=== PATIENT | male | born 1995 | race African-American/Black ===

== ENCOUNTER 2024-10-23 13:18 | Inpatient (IN) | payer OTHER ==
[~2024-10-23] VITALS: Ht 182.9 cm; Wt 73.0 kg
[2024-10-23 15:50] VITALS: BP 120/57; PULSE 60; RESP 18; TEMP 98.7; O2SAT 100
[2024-10-23] MEDS ORDERED: ONDANSETRON 4 MG RAPDIS TABLET PO PRN (16:30)
[2024-10-23] MEDS ORDERED: POLYETHYLENE GLYCOL 3350 17 GM PACKET PO PRN (16:30)
[2024-10-23] MEDS ORDERED: OxyCODONE HCL 10 MG IR TABLET PO PRN (16:30)
[2024-10-23] MEDS: ACETAMINOPHEN 325 MG TABLET PO SCH (18:35)
[2024-10-23] MEDS: IBUPROFEN 600 MG TABLET PO SCH (18:36)
[2024-10-23 19:39] VITALS: BP 128/66; PULSE 86; RESP 18; TEMP 97.8; O2SAT 100
[2024-10-23 19:42] VITALS: O2SAT 100
[2024-10-23] MEDS: SENNOSIDES 8.6 MG TABLET PO SCH (21:12)
[2024-10-23] MEDS: DOCUSATE SODIUM 250 MG CAPSULE PO SCH (21:12)
[2024-10-23] MEDS: ETHYL ALCOHOL 62% ANTISEPTIC NASAL SANITIZER 0.6 ML AMPUL NASAL SCH (21:12)
[2024-10-23] MEDS: ENOXAPARIN SODIUM 40 MG/0.4 ML PF SYRINGE SQ SCH (21:13)
[2024-10-23] MEDS: TraZODone HCL 50 MG TABLET PO PRN (21:15)
[2024-10-23] MEDS: BACITRACIN 28 GM OINTMENT TP SCH (22:50)
[2024-10-23 23:25] VITALS: O2SAT 100
[2024-10-24 07:55] VITALS: BP 120/72; PULSE 61; RESP 18; TEMP 98; O2SAT 100
[2024-10-24 07:58] LABS: BASOPHILS % (AUTO) 0.4 % (0.0-2.0); EOSINOPHILS % (AUTO) 3.4 % (1.0-6.0); HEMATOCRIT 31.1 % (41-53); HEMOGLOBIN 10.5 g/dL (13.5-17.5); LYMPHOCYTES # (AUTO) 1.1 K/uL (1.0-4.8); LYMPHOCYTES % (AUTO) 15.8 % (22.0-44.0); MEAN CORPUSCULAR HEMOGLOBIN 30.6 pg (26.0-34.0); MEAN CORPUSCULAR HGB CONC 33.8 G/dL (31.0-37.0); MEAN CORPUSCULAR VOLUME 91 fL (80-100); MONOCYTES # (AUTO) 0.8 K/uL (0.1-1.0); MONOCYTES % (AUTO) 11.9 % (2.0-9.0); NEUTROPHILS # (AUTO) 4.9 K/uL (1.8-7.7); NEUTROPHILS % (AUTO) 68.5 % (40.0-70.0); PLATELET COUNT (AUTO) 225 K/uL (150-450); RED BLOOD CELL COUNT(AUTO) 3.43 MIL/uL (4.50-5.90); WHITE BLOOD COUNT (AUTO) 7.1 K/uL (4.5-11.0)
[2024-10-24 08:00] VITALS: O2SAT 100
[2024-10-24 08:14] LABS: ALANINE AMINOTRANSFERASE 125 U/L (12-78); ALBUMIN 2.9 g/dL (3.4-5.0); ALKALINE PHOSPHATASE 34 U/L (46-116); ANION GAP 4 mmol/L (8-16); ASPARTATE AMINOTRANSFERASE 148 U/L (15-37); BILIRUBIN,TOTAL 1.4 mg/dL (0.1-1.0); CALCIUM, TOTAL 8.4 mg/dL (8.8-10.5); CARBON DIOXIDE 30 mmol/L (22-29); CHLORIDE 104 mmol/L (98-107); CREATININE 0.95 mg/dL (0.60-1.30); GLOMERULAR FILTR. RATE CALC > 60 mL/min (>60); GLUCOSE,RANDOM 84 mg/dL (70-110); POTASSIUM 4.1 mmol/L (3.5-5.1); SODIUM SERUM 138 mmol/L (136-145); TOTAL PROTEIN, SERUM 6.3 g/dL (6.4-8.2); UREA NITROGEN, BLOOD 15 mg/dL (7-18)
[2024-10-24] MEDS: LIDOCAINE 5% TRANSDERMAL PATCH TD SCH (08:31)
[2024-10-24 16:25] VITALS: PULSE 83; RESP 16; O2SAT 100
[2024-10-24] MEDS: LACTULOSE 20 GM/30 ML SOLUTION UDCUP PO PRN (17:31)
[2024-10-24] MEDS: BISACODYL 10 MG RECTAL RECTAL SUPPOSITORY PR PRN (19:54)
[2024-10-24] MEDS: -LIDODERM PATCH NOTE- MISC SCH (19:54)
[2024-10-24 20:00] VITALS: BP 117/76; PULSE 88; RESP 18; TEMP 98.6; O2SAT 96
[2024-10-25 03:34] VITALS: O2SAT 96
[2024-10-25 08:02] VITALS: BP 108/70; PULSE 75; RESP 18; TEMP 99; O2SAT 99
[2024-10-25] MEDS: ENOXAPARIN SODIUM 40 MG/0.4 ML PF SYRINGE SQ SCH (08:09)
[2024-10-25 10:10] VITALS: TEMP 98.8
[2024-10-25 20:00] VITALS: BP 116/67; PULSE 73; RESP 18; TEMP 98.6; O2SAT 100
[2024-10-26 08:00] VITALS: BP 115/78; PULSE 70; RESP 19; TEMP 98.1; O2SAT 100
[2024-10-26] MEDS: OxyCODONE HCL 5 MG IR TABLET PO PRN (09:00)
[2024-10-26 20:01] VITALS: BP 117/62; PULSE 76; RESP 19; TEMP 98.2; O2SAT 100
[2024-10-27 01:59] VITALS: O2SAT 100
[2024-10-27 08:00] VITALS: BP 96/56; PULSE 67; RESP 19; TEMP 98.2; O2SAT 100
[2024-10-27 20:05] VITALS: BP 119/65; PULSE 82; RESP 18; TEMP 98.6; O2SAT 97
[2024-10-27 22:00] VITALS: O2SAT 97
[2024-10-28 08:00] VITALS: BP 107/72; PULSE 70; RESP 20; TEMP 98.1; O2SAT 100
[2024-10-28] MEDS: FAMOTIDINE 20 MG TABLET PO SCH (12:37)
[2024-10-28] MEDS ORDERED: ASPI-1450 PO (13:25)
[2024-10-28] MEDS ORDERED: FAMO20 PO (13:25)
[2024-10-28 20:00] VITALS: BP 109/62; PULSE 69; RESP 18; TEMP 98.3; O2SAT 99
[2024-10-28] MEDS: ASPIRIN 81 MG CHEWABLE TABLET PO SCH (20:56)
[2024-10-29] MEDS ORDERED: DOCU-412 PO (03:30)
[2024-10-29] MEDS ORDERED: SENN-376 PO (03:30)
[2024-10-29 08:00] VITALS: BP 105/62; PULSE 71; RESP 20; TEMP 98.1; O2SAT 99
[2024-10-29] MEDS ORDERED: ASPI-1450 PO (10:06)
[2024-10-29] MEDS ORDERED: FAMO20 PO (10:06)
== END 2024-10-29 12:15 | disposition home or self-care (01) | DRG 964 ==
LOC: 2WR 15:59
PROVIDERS: ADMIT Physical Medicine & Rehabilitation; ATTEND Physical Medicine & Rehabilitation
DX: S06.9X9A Unspecified intracranial injury with loss of consciousness of unspecified duration, initial encounter (principal); E46 Unspecified protein-calorie malnutrition; S27.322A Contusion of lung, bilateral, initial encounter; S32.89XA Fracture of other parts of pelvis, initial encounter for closed fracture; D64.9 Anemia, unspecified; K59.00 Constipation, unspecified; Z74.09 Other reduced mobility; G47.00 Insomnia, unspecified; R40.2420 Glasgow coma scale score 9-12, unspecified time; R63.39 Other feeding difficulties; R74.01 Elevation of levels of liver transaminase levels; R26.81 Unsteadiness on feet; M54.9 Dorsalgia, unspecified; R74.8 Abnormal levels of other serum enzymes; S31.31XD Laceration without foreign body of scrotum and testes, subsequent encounter; V23.49XD Other motorcycle driver injured in collision with car, pick-up truck or van in traffic accident, subsequent encounter; Z63.5 Disruption of family by separation and divorce; Z68.21 Body mass index [BMI] 21.0-21.9, adult; Z79.899 Other long term (current) drug therapy
CPT/HCPCS: 80053; 85025; 87081; 92507; 92523; 93971; 97110; 97112; 97116; 97163; 97167; 97530; 97535; 99366; G0238; J1650